=== PATIENT | male | born 1975 | race Caucasian/White ===

== ENCOUNTER 2016-07-03 11:32 | Emergency (ER) | payer SELFPAY ==
[2016-07-03 13:01] LABS: Basophils % (Auto) 0.4 % (0.0-1.8); Eosinophils % (Auto) 1.2 % (0.0-4.3); Hematocrit 43.7 % (35.5-45.6); Hemoglobin 14.9 gm/dl (11.8-15.2); Mean Corpuscular HGB Conc 34 % (32-34); Mean Corpuscular Hemoglobin 30 pg (28-32); Mean Corpuscular Volume 87 fl (84-94); Platelet Count 170 K/mm3 (140-440); Red Blood Count 5.01 M/mm3 (3.65-5.03); Red Cell Distribution Width 13.6 % (13.2-15.2); White Blood Count 8.4 K/mm3 (4.5-11.0)
[2016-07-03 13:13] LABS: Alanine Aminotransferase 20 units/L (7-56); Albumin 4.2 g/dL (3.9-5); Albumin/Globulin Ratio 1.1 %; Alkaline Phosphatase 65 units/L (35-129); Anion Gap 21 mmol/L; BUN/Creatinine Ratio 18.57; Blood Urea Nitrogen 13 mg/dL (9-20); Calcium 9.4 mg/dL (8.4-10.2); Carbon Dioxide 22 mmol/L (22-30); Glucose 112 mg/dL (75-100); Potassium 3.9 mmol/L (3.6-5.0); Sodium 134 mmol/L (137-145); Total Protein 8.2 g/dL (6.3-8.2)
--- NOTE | 2016-07-03 14:24 | Emergency Department Report ---
HPI - General Chief Complaint: Extremity Problem,Nontraumatic Time Seen by Provider: 07/03/16 13:58 - HPI HPI: This is a 41-year-old male presents the emergency department, sent in by his PCP office, for a right lower extremity Doppler ultrasound to rule out a DVT. The patient has been dealing with right calf pain over the past 3 weeks. It has been swelling but he denies any redness or skin color change. He saw the nurse practitioner for Dr. Mariza Mcleod and was sent in today. He has a past medical history of diabetes and is on metformin and says that he takes it compliantly. He denies any chest pain, shortness of breath, fever. He has not taken anything recently for symptoms prior to presentation. He denies any trauma to the affected area. He denies any long car or plane rides greater than 4 hours or any immobility. No previous history of any DVT, PE or bleeding/ coagulopathy conditions. ED Past Medical Hx - Past Medical History Hx Hypertension: Yes Hx Diabetes: Yes - Social History Smoking Status: Never Smoker Substance Use Type: Alcohol - Medications Home Medications: Home Medications Medication Instructions Recorded Confirmed Last Taken Type Rivaroxaban [Xarelto] 15 mg PO BID #42 tablet 07/03/16 Unknown Rx ED Review of Systems ROS: Stated complaint: SENT BY DR OFFICE R/O DVT Other details as noted in HPI Comment: Unobtainable due to pts medical conditions Constitutional: denies: chills, fever Eyes: denies: eye pain, eye discharge, vision change ENT: denies: ear pain, throat pain Respiratory: denies: cough, shortness of breath, wheezing Cardiovascular: edema. denies: chest pain, palpitations Endocrine: no symptoms reported Gastrointestinal: denies: abdominal pain, nausea, diarrhea Genitourinary: denies: urgency, dysuria Musculoskeletal: myalgia. denies: back pain Skin: denies: rash, lesions Neurological: denies: headache, weakness, paresthesias Physical Exam - Physical Exam Vital Signs: Vital Signs 07/03/16 12:14 Temperature 98.6 F Pulse Rate 79 Respiratory 20 Rate Blood Pressure 150/81 O2 Sat by Pulse 100 Oximetry Physical Exam: GENERAL: The patient is well-developed well-nourished. HEENT: Normocephalic. Atraumatic. Extraocular motions are intact. Patient has moist mucous membranes. Pupils equal reactive to light bilaterally. NECK: Supple. Trachea is midline. CHEST/LUNGS: Clear to auscultation. There is no respiratory distress noted. HEART/CARDIOVASCULAR: Regular. There is no tachycardia. There is no gallop rub or murmur. ABDOMEN: Abdomen is soft, nontender. Patient has normal bowel sounds. There is no abdominal distention. SKIN: There is nonpitting swelling to the right calf and right foot when compared to the left. It is slightly warm to touch but there is no erythema, rash, bleeding, weeping or drainage. NEURO: The patient is awake, alert, and oriented. The patient is cooperative. The patient has no focal neurologic deficits. The patient has normal speech. MUSCULOSKELETAL: There is no tenderness or deformity. There is no limitation range of motion. There is no evidence of acute injury. Dorsi/plantar flexion 5 out of 5 bilaterally. Pedal pulses +2 over 4 bilaterally. ED Course Vital Signs 07/03/16 12:14 Temperature 98.6 F Pulse Rate 79 Respiratory 20 Rate Blood Pressure 150/81 O2 Sat by Pulse 100 Oximetry - Consultations Consultation #1: I spoke with the nurse practitioner for Dr. Mariza Mcleod, Mireya Lamar, regarding the right lower extremity venous Doppler results showing a DVT. She agrees with the plan for starting the patient on Xarelto and follow-up in their office on Wednesday. 07/03/16 14:22 ED Medical Decision Making - Lab Data Result diagrams: 07/03/16 12:31 07/03/16 12:31 - Radiology Data Radiology results: report reviewed Right lower extremity venous Doppler ultrasound is positive for an acute DVT from the popliteal vein down to the proximal posterior tibial vein and peroneal veins. - Medical Decision Making 41-year-old male presents the emergency department with 3 weeks of intermittent right calf pain and some swelling. He went to see the primary care doctor today and was sent here for a venous Doppler ultrasound. The ultrasound was positive for an acute DVT in the right popliteal vein down to the right proximal posterior tibial vein and peroneal veins. There is no involvement in the iliofemoral region. Patient's labs are unremarkable including no leukocytosis and he has controlled blood sugar. I spoke with the nurse practitioner who agrees with the plan for follow-up on Wednesday and starting the patient on Xarelto. The patient has good follow-up and has good insurance and will be able to afford the anticoagulation. I spoke with the patient and his family in great detail regarding the risks and benefits of the medication, the concern for increased chance of bleeding. They understand that he should return to the ER with any worsening of his symptoms, development of chest pain, shortness of breath or tachycardia. He was given the first dose of Xarelto here and will be given a prescription for this. - Differential Diagnosis DVT, cellulitis, venous stasis Critical Care Time: No Critical care attestation.: If time is entered above; I have spent that time in minutes in the direct care of this critically ill patient, excluding procedure time. ED Disposition Clinical Impression: DVT (deep venous thrombosis) Qualifiers: DVT location: lower extremity Affected thrombotic vein of extremity: popliteal Laterality: right Chronicity: acute Qualified Code(s): I82.431 - Acute embolism and thrombosis of right popliteal vein Disposition: DISCHARGED TO HOME OR SELFCARE Is pt being admited?: No Condition: Stable Instructions: Deep Venous Thrombosis (ED) Additional Instructions: Please follow-up with your primary care doctor, the office of Dr. Mariza Mcleod , on Wednesday without fail. I have prescribed for you and anticoagulation medication called Xarelto that is to be taken twice daily. Please do not miss any doses. This medication will make you more prone to bleeding so you need to be careful at work, be careful not to be falling down or hitting your head. Return to the emergency department immediately with any worsening of your symptoms, development of chest pain or shortness of breath, rapid heart rate or any acute distress. Prescriptions: Rivaroxaban [Xarelto] 15 mg PO BID #42 tablet Referrals: MARIZA MCLEOD MD [Staff Physician] - 07/07/16 Time of Disposition: 14:44 Print Language: WOLOF
[2016-07-03] MEDS ORDERED: XARELTO PO ONE (14:30)
[2016-07-03 15:33] VITALS: BP 128/73
--- NOTE | 2016-07-08 14:58 | Vascular Lab Report ---
Right Lower Extremity Venous Duplex Study: Reason for Exam: Pain and swelling of the right lower extremity. Comments on the Right: There is an predominately occlusive acute deep venous thrombus in the right popliteal vein extending inferiorly into the posterior tibial and peroneal veins to the proximal calf. The remaining veins visualized are freely compressible without evidence of internal echogenicity. Spontaneous and phasic flow is diminished proximally. Comments on the Left: A limited duplex study was done of the proximal veins of the left lower extremity. All veins visualized are freely compressible without evidence of internal echogenicity. Flow is spontaneous and phasic throughout. No evidence of acute or chronic thrombus is seen in any of the vessels visualized. Impression: Acute right lower extremity deep venous thrombus.
== END 2016-07-03 15:33 | disposition home or self-care (01) ==
LOC: ED 11:32
DX: I82.431 Acute embolism and thrombosis of right popliteal vein (principal); I10 Essential (primary) hypertension; E11.9 Type 2 diabetes mellitus without complications
CPT/HCPCS: 36415; 80053; 85025